=== PATIENT | female | born 1960 | race Caucasian/White ===

== ENCOUNTER 2022-06-15 08:20 | Emergency (ER) | payer SELFPAY ==
[2022-06-15 08:59] LABS: #Lymphocytes 0.4 thou/uL (1.20-3.40); #Monocytes 0.3 thou/uL (0.11-0.59); #Neutrophils 3.7 thou/uL (1.40-6.50); %Basophils 0.2 % (0.0-1.0); %Eosinophils 0.3 % (0.0-10.0); %Lymphocytes 8.7 % (21.0-51.0); %Monocytes 6.1 % (0.0-10.0); %Neutrophils 84.7 % (42.0-75.0); Mean Corpuscular HGB CONC 34.5 g/dL (32.0-36.0); Mean Corpuscular Volume 90.1 fl (78.0-98.0); Mean Platelet Volume 6.7 fL (7.4-10.4); Platelet Count 179 10x3/uL (130-400); RBC Distribution Width 12.8 % (11.5-14.5); Red Blood Cell (RBC) Count 4.52 mill/uL (4.20-5.40); White Blood Cell (WBC) Count 4.4 10x3/uL (4.8-10.8)
[2022-06-15 09:21] LABS: ALT (SGPT) 14 U/L (8-55); AST (SGOT) 22 U/L (5-34); Albumin 4.1 g/dL (3.4-4.8); Alkaline Phosphatase 92 U/L (40-110); Anion Gap 14 mmol/L (10-20); BUN (Urea Nitrogen) 17 mg/dL (9.8-20.1); Bilirubin, Total 0.6 mg/dL (0.2-1.2); Calc. Creatinine Clearance 0 mL/min (70-130); Carbon Dioxide 22 mmol/L (23-31); Chloride 101 mmol/L (98-107); Estimated GFR 52; Globulin 2.9 g/dL (2.4-3.5); Glucose 117 mg/dL (80-115); Lipase 36 U/L (8-78); Potassium 3.4 mmol/L (3.5-5.1); Sodium 134 mmol/L (136-145)
== END 2022-06-15 10:23 | disposition home or self-care (01) ==
LOC: ERS 08:20
DX: R55 Syncope and collapse (principal); A08.4 Viral intestinal infection, unspecified
CPT/HCPCS: 36415; 71045; 80053; 83690; 84443; 84484; 85025; 93005; 96360